=== PATIENT | female | born 1975 | race African-American/Black ===

== ENCOUNTER 2021-06-04 13:06 | Emergency (ER) | payer OTHER ==
--- OUTSIDE RECORDS SUMMARY | 2021-06-04 13:09 | XMS REPORT | Continuity of Care Document ---
:1975 Author Organization [facility] t Address [address] [place] [address] Care Team Providers Name Role Phone Unavailable Unavailable Unavailable Problems This patient has no known problems. Allergies, Adverse Reactions, Alerts This patient has no known allergies or adverse reactions. Medications This patient has no known medications. Procedures This patient has no known procedures. Encounters Start End Encounter Admission Attending Care Care Encounter Source Date/Time Date/Time Type Type Clinicians Facility Department ID 2020-12-16 2020-12-[address] [facility] [id number] [facility] 2020-11-27 2020-11-[address] [facility] [id number] [facility] 2020-11-26 2020-11-[address] [facility] [id number] [facility] Results This patient has no known results.
[2021-06-04] MEDS ORDERED: Ringers Lactate 1,000 ML IV ONE (16:07)
[2021-06-04 16:27] LABS: Absolute Lymphocytes (CBC) 0.9 K/uL (0.7-4.9); Basophils % 0.3 % (0-1.3); Hematocrit 34.8 % (36.0-45.0); Lymphocytes % 25.1 % (15.3-44.8); MPV 8.7 fL (7.6-11.3); Protime INR 1.04
--- NOTE | 2021-06-04 16:38 | RAD REPORT ---
EXAM DESCRIPTION: RAD - Chest Single View - 06/04/2021 4:28 pm CLINICAL HISTORY: syncope Chest pain. COMPARISON: No comparisons FINDINGS: Portable technique limits examination quality. The lungs are grossly clear. The heart is normal in size. No displaced fractures. IMPRESSION: No acute intrathoracic process suspected.
[2021-06-04 16:42] LABS: ALT/SGPT 17 U/L (12-78); AST/SGOT 14 U/L (15-37); Albumin 3.7 g/dL (3.4-5.0); Alkaline Phosphatase 98 U/L (45-117); BUN Blood Urea Nitrogen 10 mg/dL (7-18); Bicarbonate 25 mmol/L (21-32); Bilirubin Direct 0.1 mg/dL (0-0.2); Bilirubin Total 0.2 mg/dL (0.2-1.0); Glucose Level 90 mg/dL (74-106); NT PRO-BNP 16 pg/mL (<125); Potassium 3.9 mmol/L (3.5-5.1); Protein, Total 7.6 g/dL (6.4-8.2); Sodium Level 139 mmol/L (136-145); Troponin (Emerg Dept Use Only) < 0.02 ng/mL (0.0-0.045)
--- NOTE | 2021-06-04 17:23 | ER ---
Nurse's Notes [facility] Name: Griselda Montanez Age: 46 yrs Sex: Female : 1975 Arrival Date: 06/04/2021 Time: 13:07 Bed 11 Private MD: Diagnosis: Syncope Presentation: 06/04 13:07 Chief complaint: Patient states: sore throat and feeling as if she needed to have a BM. ss Pt had a syncopal episode on the way to restroom. Coronavirus screen: Client denies travel out of the [place] in the last 14 days. Ebola Screen: Patient denies exposure to infectious person. Patient denies travel to an Ebola-affected area in the 21 days before illness onset. Initial Sepsis Screen: Does the patient meet any 2 criteria? No. Patient's initial sepsis screen is negative. Does the patient have a suspected source of infection? No. Patient's initial sepsis screen is negative. Risk Assessment: Do you want to hurt yourself or someone else? Patient reports no desire to harm self or others. Onset of symptoms was June 04, 2021. 13:07 Method Of Arrival: EMS: [facility] 13:07 Acuity: GABRIELLA 3 ss Triage Assessment: 15:49 General: Appears in no apparent distress. Behavior is calm, cooperative, appropriate jh5 for age. Pain: Denies pain. Neuro: No deficits noted. Reports a syncopal episode. Historical: - Allergies: 13:10 No Known Allergies; ss - Home Meds: 13:10 Hydrochlorothiazide Oral [Active]; ss - PMHx: 13:10 Hypertensive disorder; ss - PSHx: 13:10 None; ss - Immunization history:: Client reports having NOT received the Covid vaccine. - Social history:: Smoking status: Patient denies any tobacco usage or history of. Screenin:49 Abuse screen: Denies threats or abuse. Denies injuries from another. Nutritional jh5 screening: No deficits noted. Tuberculosis screening: No symptoms or risk factors identified. Fall Risk None identified. Assessment: 16:05 Neuro: Level of Consciousness is awake, alert, obeys commands, Oriented to person, jh5 place, time, situation, Appropriate for age. Cardiovascular: Rhythm is regular. 17:36 Reassessment: Patient appears in no apparent distress at this time. Patient and/or ss family updated on plan of care and expected duration. Pain level reassessed. Patient is alert, oriented x 3, equal unlabored respirations, skin warm/dry/pink. Patient denies pain at this time. Patient states feeling better. Patient states symptoms have improved. Vital Signs: 13:07 BP 116 / 87; Pulse 71; Resp 16; Temp 97.8(O); Pulse Ox 100% on R/A; Weight 92.08 kg; Height 5 ft. 9 in. (175.26 cm); Pain 5/10; 17:14 BP 136 / 89 LA Sitting; Pulse 68; Resp 16; Pulse Ox 100% on R/A; dh3 17:16 BP 135 / 95 LA Standing; Pulse 85; Resp 16; Pulse Ox 100% on R/A; dh3 13:07 Body Mass Index 29.98 (92.08 kg, 175.26 cm) ED Course: 13:07 Patient arrived in ED. 13:09 Triage completed. 13:10 Arm band placed on right wrist. 15:48 Hallie Zhou, JAMA is Primary Nurse. [facility] 15:49 Roland Palma PA is PHCP. [facility] 15:49 Fozia Platt MD is Attending Physician. [facility] 15:50 Patient has correct armband on for positive identification. Bed in low position. Call [facility] light in reach. Side rails up X 1. 16:04 No provider procedures requiring assistance completed. [facility] 16:28 XRAY Chest (1 view) In Process Unspecified. EDWI 17:36 IV discontinued, intact, bleeding controlled, No redness/swelling at site. Pressure ss dressing applied. Administered Medications: 16:15 Drug: Ringers - Lactated Ringers Solution 1000 ml Route: IV; Rate: calculated rate; [facility] Site: right antecubital; Outcome: 17:22 Discharge ordered by . isatu 17:36 Discharged to home ambulatory. 17:36 Condition: good 17:36 Discharge instructions given to patient, family, Instructed on discharge instructions, follow up and referral plans. Demonstrated understanding of instructions, follow-up care. 17:37 Patient left the ED. Signatures: Dispatcher [employer] EDWI Nicky York RN RN Roland Palma PA PA [facility] Nedra Murray dh3 Hallie Zhou, RN RN jh5
--- NOTE | 2021-06-04 17:23 | EDPHYS ---
Physician Documentation [facility] Name: Griselda Montanez Age: 46 yrs Sex: Female : 1975 Arrival Date: 06/04/2021 Time: 13:07 Bed 11 Private MD: ED Physician Fozia Platt HPI: 06/04 16:32 This 46 yrs old Black Female presents to ER via EMS with complaints of Syncope, Sore jr8 Throat. 16:32 The patient has experienced syncope. Onset: The symptoms/episode began/occurred jr8 acutely, today. Current symptoms: Currently, the patient is not experiencing any symptoms, the patient feels back to baseline, no decreased level of consciousness, no confusion, no dysphasia, no headache, no paralysis, no visual changes. The patient has not experienced similar symptoms in the past. The patient has not recently seen a physician. Patient stated that she was standing cooking food. Started to feel very warm and nauseated. Went to bathroom but could not vomit or have bowel movement. Stated that she laid on floor for a while and started to feel better. Got back on the toilet to use bathroom and then became diaphoretic and passed out. Mother found her at that time and called 911. Historical: - Allergies: 13:10 No Known Allergies; ss - Home Meds: 13:10 Hydrochlorothiazide Oral [Active]; ss - PMHx: 13:10 Hypertensive disorder; ss - PSHx: 13:10 None; ss - Immunization history:: Client reports having NOT received the Covid vaccine. - Social history:: Smoking status: Patient denies any tobacco usage or history of. ROS: 16:32 Eyes: Negative for injury, pain, redness, and discharge, ENT: Negative for injury, jr8 pain, and discharge, Neck: Negative for injury, pain, and swelling, Cardiovascular: Negative for chest pain, palpitations, and edema, Respiratory: Negative for shortness of breath, cough, wheezing, and pleuritic chest pain, Back: Negative for injury and pain, MS/Extremity: Negative for injury and deformity, Skin: Negative for injury, rash, and discoloration. 16:32 Abdomen/GI: Positive for nausea. 16:32 Neuro: Positive for syncope. Exam: 16:32 Constitutional: This is a well developed, well nourished patient who is awake, alert, jr8 and in no acute distress. Eyes: Pupils equal round and reactive to light, extra-ocular motions intact. Lids and lashes normal. Conjunctiva and sclera are non-icteric and not injected. Cornea within normal limits. Periorbital areas with no swelling, redness, or edema. ENT: Nares patent. No nasal discharge, no septal abnormalities noted. Tympanic membranes are normal and external auditory canals are clear. Oropharynx with no redness, swelling, or masses, exudates, or evidence of obstruction, uvula midline. Mucous membranes moist. Neck: Trachea midline, no thyromegaly or masses palpated, and no cervical lymphadenopathy. Supple, full range of motion without nuchal rigidity, or vertebral point tenderness. No Meningismus. Cardiovascular: Regular rate and rhythm with a normal S1 and S2. No gallops, murmurs, or rubs. Normal PMI, no JVD. No pulse deficits. Respiratory: Lungs have equal breath sounds bilaterally, clear to auscultation and percussion. No rales, rhonchi or wheezes noted. No increased work of breathing, no retractions or nasal flaring. Abdomen/GI: Soft, non-tender, with normal bowel sounds. No distension or tympany. No guarding or rebound. No evidence of tenderness throughout. Back: No spinal tenderness. No costovertebral tenderness. Full range of motion. Skin: Warm, dry with normal turgor. Normal color with no rashes, no lesions, and no evidence of cellulitis. MS/ Extremity: Pulses equal, no cyanosis. Neurovascular intact. Full, normal range of motion. Neuro: Awake and alert, GCS 15, oriented to person, place, time, and situation. Cranial nerves II-XII grossly intact. Motor strength 5/5 in all extremities. Sensory grossly intact. Cerebellar exam normal. Normal gait. Vital Signs: 13:07 BP 116 / 87; Pulse 71; Resp 16; Temp 97.8(O); Pulse Ox 100% on R/A; Weight 92.08 kg; ss Height 5 ft. 9 in. (175.26 cm); Pain 5/10; 17:14 BP 136 / 89 LA Sitting; Pulse 68; Resp 16; Pulse Ox 100% on R/A; dh3 17:16 BP 135 / 95 LA Standing; Pulse 85; Resp 16; Pulse Ox 100% on R/A; dh3 13:07 Body Mass Index 29.98 (92.08 kg, 175.26 cm) ss MDM: 15:49 Patient medically screened. [facility] 17:21 Data reviewed: vital signs, nurses notes, lab test result(s), EKG, radiologic studies, jr8 plain films. Data interpreted: Pulse oximetry: on room air is 100 %. Interpretation: normal. Counseling: I had a detailed discussion with the patient and/or guardian regarding: the historical points, exam findings, and any diagnostic results supporting the discharge/admit diagnosis, lab results, radiology results, the need for outpatient follow up, a family practitioner, to return to the emergency department if symptoms worsen or persist or if there are any questions or concerns that arise at home. Response to treatment: the patient's symptoms have markedly improved after treatment, patient is well hydrated. 06/04 16:05 Order name: Basic Metabolic Panel; Complete Time: 16:48 [facility] 06/04 16:05 Order name: CBC with Diff; Complete Time: 16:32 [facility] 06/04 16:05 Order name: LFT's; Complete Time: 16:48 [facility] 06/04 16:05 Order name: Magnesium; Complete Time: 16:48 [facility] 06/04 16:05 Order name: NT PRO-BNP; Complete Time: 16:48 [facility] 06/04 16:05 Order name: PT-INR; Complete Time: 16:32 [facility] 06/04 16:05 Order name: Troponin (emerg Dept Use Only); Complete Time: 16:48 [facility] 06/04 16:05 Order name: XRAY Chest (1 view); Complete Time: 16:41 06/04 16:05 Order name: EKG; Complete Time: 16:06 [facility] 06/04 16:05 Order name: Cardiac monitoring; Complete Time: 16:15 [facility] 06/04 16:05 Order name: EKG - Nurse/Tech; Complete Time: 16:55 06/04 16:05 Order name: IV Saline Lock; Complete Time: 16:15 [facility] 06/04 16:05 Order name: Labs collected and sent; Complete Time: 16:16 [facility] 06/04 16:05 Order name: O2 Per Protocol; Complete Time: 16:06 [facility] 06/04 16:05 Order name: O2 Sat Monitoring; Complete Time: 16:05 jr8 06/04 16:49 Order name: Orthostatics; Complete Time: 17:19 jr8 Administered Medications: 16:15 Drug: Ringers - Lactated Ringers Solution 1000 ml Route: IV; Rate: calculated rate; jh5 Site: right antecubital; Disposition Summary: 06/04/21 17:22 Discharge Ordered Location: Home jr8 Problem: new jr8 Symptoms: have improved jr8 Condition: Stable jr8 Diagnosis - Syncope jr8 Followup: jr8 - With: Private Physician - When: 5 - 6 days - Reason: Recheck today's complaints, Continuance of care, Re-evaluation by your physician Discharge Instructions: - Discharge Summary Sheet jr8 - Syncope jr8 Forms: - Medication Reconciliation Form jr8 - Thank You Letter jr8 - Antibiotic Education jr8 - Prescription Opioid Use jr8 Addendum: 06/06/2021 18:51 Co-signature as Attending Physician, Fozia Platt MD. m a2 Signatures: Dispatcher [employer] Nicky Wilson RN RN Roland Palma PA PA jr8 Fozia Platt MD MD ma2 Hallie Zhou RN RN jh5
[2021-06-04 17:41] VITALS: TEMP 97.8; O2SAT 100
[2021-06-04 17:43] VITALS: BP 135/95
== END 2021-06-04 17:37 | disposition home or self-care (01) ==
LOC: ER 13:06
DX: R55 Syncope and collapse (principal); R11.0 Nausea; I10 Essential (primary) hypertension
CPT/HCPCS: 93005; 85025; 80048; 36415; 83735; 85610; 80076; 84484; 83880; 71045; 96374; 99283; J7120

== ENCOUNTER 2022-03-05 20:02 | Emergency (ER) | payer OTHER ==
--- OUTSIDE RECORDS SUMMARY | 2022-03-05 20:04 | XMS REPORT | Continuity of Care Document ---
:1975 Author Organization [facility] t Address [address] [place] [address] Care Team Providers Name Role Phone Vidya Mahmood Nubia Attending Clinician Unavailable Problems This patient has no known problems. Allergies, Adverse Reactions, Alerts This patient has no known allergies or adverse reactions. Medications This patient has no known medications. Procedures This patient has no known procedures. Encounters Start End Encounter Admission Attending Care Care Encounter Source Date/Time Date/Time Type Type Clinicians Facility Department ID 2021-07-07 Outpatient Mahmood, Na [facility] [id number] 2 Common 13:36:57 [id number] [facility] 2021-07-07 Outpatient Timoteo Na [facility] ST[facility] [id number] 2 Common 13:36:41 [id number] [facility] 2021-07-07 Outpatient Mahmood, Na [facility] ST[facility] [id number] 2 Common 13:23:03 [id number] [facility] 2021-07-07 Outpatient [facility] ST[facility] [id number] Common 13:21:58 [id number] [facility] 2021-07-07 Outpatient [facility] ST[facility] [id number] Common 13:16:06 [id number] [facility] 2020-12-16 2020-12-16 Outpatient [facility] [id number] Common 00:00:00 00:00:00 [facility] 2020-11-27 2020-11-27 Outpatient [facility] [id number] Common 00:00:00 00:00:00 [facility] 2020-11-26 2020-11-26 Outpatient [facility] [id number] Common 00:00:00 00:00:00 [facility] Results This patient has no known results.
[2022-03-05] MEDS ORDERED: hydroCHLOROthiazide 25 MG TAB ONE (20:45)
[2022-03-05] MEDS ORDERED: TETANUS & DIPHTHERIA TOX,ADULT 0.5 ML VIAL ONE (20:45)
[2022-03-05] MEDS ORDERED: LIDOCAINE 1% MPF 30 ML VIAL ONE (20:46)
--- NOTE | 2022-03-05 21:20 | EDPHYS ---
Physician Documentation [facility] Name: Griselda Montanez Age: 46 yrs Sex: Female : 1975 Arrival Date: 03/05/2022 Time: 20:05 Bed 12 Private MD: ED Physician Keturah Manriquez HPI: 03/05 21:50 This 46 yrs old Black Female presents to ER via Ambulatory with complaints of Dog Bite. kb 21:50 The patient was bitten on the dorsal aspect of proximal phalanx of left thumb and kb dorsum of left hand, by a dog, while trying to stop animals from fighting, at a relative's home. Onset: The symptoms/episode began/occurred just prior to arrival. Animal information: The animal was reported to appear healthy. Animal's vaccinations are up to date. Secondary to the bite the patient reports multiple lacerations, that are superficial, with the longest being 1.5 cm(s), and the total laceration length being 2.5 cm(s). Associated signs and symptoms: Pertinent positives: pain at site, swelling at site. Severity of symptoms: At their worst the symptoms were mild, in the emergency department the symptoms are unchanged. The patient has not experienced similar symptoms in the past. The patient has not recently seen a physician. 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 - Social history:: Smoking status: Patient denies any tobacco usage or history of. ROS: 21:02 Constitutional: Negative for fever, chills, and weight loss. kb 21:02 Skin: Positive for laceration(s), of the dorsal aspect of proximal phalanx of left thumb and dorsum of left hand. 21:02 All other systems are negative. Exam: 21:01 Constitutional: This is a well developed, well nourished patient who is awake, alert, kb and in no acute distress. Head/Face: Normocephalic, atraumatic. ENT: Moist Mucous membranes Respiratory: Respirations even and unlabored. No increased work of breathing. Talking in full sentences MS/ Extremity: Pulses equal, no cyanosis. Neurovascular intact. Full, normal range of motion. Neuro: Awake and alert, GCS 15, oriented to person, place, time, and situation. Moves all extremities. Normal gait. Psych: Awake, alert, with orientation to person, place and time. Behavior, mood, and affect are within normal limits. 21:01 Skin: injury, bite(s), superficial, linear, of the dorsal aspect of proximal phalanx of left thumb and dorsum of left hand. Vital Signs: 20:17 BP 160 / 104; Pulse 89; Resp 16; Temp 98.4; Pulse Ox 100% on R/A; Weight 86.18 kg; hb Height 5 ft. 9 in. (175.26 cm); Pain 6/10; 22:12 BP 148 / 89; Pulse 78; Resp 18; Pulse Ox 99% ; kb3 20:17 Body Mass Index 28.06 (86.18 kg, 175.26 cm) hb Laceration: 21:49 Wound Repair of 0.5cm ( 0.2in ) subcutaneous laceration to dorsum of left hand. Linear kb shaped.. Distal neuro/vascular/tendon intact. Anesthesia: Wound infiltrated with 1 mls of 1% lidocaine. Wound prep: Extensive cleansing with betadine by me, Wound irrigation with saline by me. Skin closed with 1 4-0 Prolene using simple sutures and sterile technique. Patient tolerated well. 21:49 Wound Repair of 1.5cm ( 0.6in ) subcutaneous laceration to dorsal aspect of proximal kb phalanx of left thumb. Linear shaped.. Distal neuro/vascular/tendon intact. Anesthesia: Local anesthetic administered with 2 mls of 1% lidocaine. Wound prep: Extensive cleansing with betadine by me, Wound irrigation with saline by me. Skin closed with 2 4-0 Prolene using simple sutures and sterile technique. Patient tolerated well. MDM: 20:10 Patient medically screened. kb 21:01 Data reviewed: vital signs, nurses notes. Data interpreted: Pulse oximetry: on room air kb is 100 %. Interpretation: normal. Counseling: I had a detailed discussion with the patient and/or guardian regarding: the historical points, exam findings, and any diagnostic results supporting the discharge/admit diagnosis, the need for outpatient follow up, a family practitioner, to return to the emergency department if symptoms worsen or persist or if there are any questions or concerns that arise at home. 03/05 20:10 Order name: Dressing - Wound; Complete Time: 22:10 kb 03/05 20:10 Order name: Gloves, Sterile; Complete Time: 20:44 kb 03/05 20:10 Order name: Prolene, Sutures; Complete Time: 20:43 kb 03/05 20:10 Order name: Setup Suture Tray; Complete Time: 20:43 kb Administered Medications: 20:44 Drug: Tetanus-Diphtheria Toxoid Adult 0.5 ml {Weighter: Pet[employer]. Exp: kd3 10/16/2023. Lot #: [id number]. } Route: IM; Site: left deltoid; 22:10 Follow up: Response: No adverse reaction kb3 20:44 Drug: Hydrochlorothiazide 25 mg Route: PO; kd3 22:10 Follow up: Response: No adverse reaction kb3 21:30 Drug: Lidocaine (1 %) 1 vials {Note: Given by Bharti MULLEN during suture procedure.} kb3 Volume: 5 ml; Route: Infiltration; 22:10 Follow up: Response: No adverse reaction kb3 22:04 Drug: Augmentin (Amoxicillin-Clavulanate) 875 mg Route: PO; kb3 22:10 Follow up: Response: No adverse reaction kb3 Disposition: 03/06 20:56 STAFF ATTESTATION STATEMENT: I was immediately available onsite in the emergency sd2 department for consultation in the care of this patient. I did not see or examine this patient. Keturah Manriquez MD. Disposition Summary: 03/05/22 21:19 Discharge Ordered Location: Home kb Condition: Stable kb Diagnosis - Bitten by dog kb Followup: kb - With: Emergency Department - When: As needed - Reason: Worsening of condition Followup: kb - With: Private Physician - When: 2 - 3 days - Reason: Recheck today's complaints, Continuance of care, Re-evaluation by your physician Discharge Instructions: - Discharge Summary Sheet kb - Animal Bite, Adult, [id number] kb Forms: - Medication Reconciliation Form kb - Thank You Letter kb - Antibiotic Education kb - Prescription Opioid Use kb Prescriptions: - Augmentin 875-125 mg Oral Tablet - take 1 tablet by ORAL route every 12 hours for 10 days; 20 tablet; Refills: 0, kb Product Selection Permitted Signatures: Bharti Astudillo, [facility]-C [facility]-Ckb Leslie Palomino, RN RN hb Sharon Bee, RN RN kd3 Keturah Manriquez MD MD sd2 Heaven Cr, RN RN kb3
--- NOTE | 2022-03-05 21:20 | ER ---
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 Vaccinations up to date per hb laundry folder. Coronavirus screen: At this time, the client does not indicate any symptoms associated with coronavirus-19. Ebola Screen: No symptoms or risks identified at this time. Risk Assessment: Do you want to hurt yourself or someone else? Patient reports no desire to harm self or others. Onset of symptoms was March 05, 2022. 20:17 Method Of Arrival: Ambulatory 20:17 Acuity: GABRIELLA 4 22:12 Initial Sepsis Screen: Does the patient meet any 2 criteria? No. Patient's initial kb3 sepsis screen is negative. Does the patient have a suspected source of infection? No. Patient's initial sepsis screen is negative. Triage Assessment: 21:00 Bite description: bite sustained to dorsum of left hand by a dog, animal information: kb3 vaccination(s) is current. 21:00 General: Appears in no apparent distress. comfortable, Behavior is calm, cooperative. 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 - Social history:: Smoking status: Patient denies any tobacco usage or history of. Screenin:52 Abuse screen: Denies threats or abuse. Denies injuries from another. Nutritional kb3 screening: No deficits noted. Tuberculosis screening: No symptoms or risk factors identified. Fall Risk None identified. Assessment: 20:30 General: Appears in no apparent distress. comfortable, Behavior is calm, cooperative, kb3 Pt reports she was trying to break up a fight between her 2 dogs and was bitten on the left hand by the small dachshund. 3 small uncture wounds noted to the dorsal surface of the left hand, largest measuring 1 cm. Bleeding is controlled. . 20:30 Pain: Complains of pain in dorsum of left hand Pain does not radiate. Pain currently is kb3 5 out of 10 on a pain scale. Quality of pain is described as burning, stinging, Pain began 30 min ago. Derm: Skin is intact, Skin is pink, warm \T\ dry. Wound noted dorsum of left hand. 20:52 General: [place] PD notified, officer en route. kb3 21:10 General: [place] Officer at bedside to take dog bite report. kb3 Vital Signs: 20:17 BP 160 / 104; Pulse 89; Resp 16; Temp 98.4; Pulse Ox 100% on R/A; Weight 86.18 kg; hb Height 5 ft. 9 in. (175.26 cm); Pain 6/10; 22:12 BP 148 / 89; Pulse 78; Resp 18; Pulse Ox 99% ; kb3 20:17 Body Mass Index 28.06 (86.18 kg, 175.26 cm) hb ED Course: 20:05 Patient arrived in ED. ja2 20:05 Bharti Astudillo FNP-C is PHCP. kb 20:05 Keturah Manriquez MD is Attending Physician. kb 20:19 Triage completed. hb 20:19 Arm band placed on. hb 20:41 Heaven Cr, RN is Primary Nurse. kb3 20:52 Patient has correct armband on for positive identification. Bed in low position. Call kb3 light in reach. 20:52 Assist provider with laceration repair Set up tray. Patient did not have IV access kb3 during this emergency room visit. Administered Medications: 20:44 Drug: Tetanus-Diphtheria Toxoid Adult 0.5 ml {Patch Machine Operator: Quippi. Exp: kd3 10/16/2023. Lot #: [id number]. } Route: IM; Site: left deltoid; 22:10 Follow up: Response: No adverse reaction kb3 20:44 Drug: Hydrochlorothiazide 25 mg Route: PO; kd3 22:10 Follow up: Response: No adverse reaction kb3 21:30 Drug: Lidocaine (1 %) 1 vials {Note: Given by Bharti MULLEN during suture procedure.} kb3 Volume: 5 ml; Route: Infiltration; 22:10 Follow up: Response: No adverse reaction kb3 22:04 Drug: Augmentin (Amoxicillin-Clavulanate) 875 mg Route: PO; kb3 22:10 Follow up: Response: No adverse reaction kb3 Medication: 20:52 VIS not applicable for this client. kb3 Outcome: 21:19 Discharge ordered by . kb 22:11 Discharged to home ambulatory. kb3 22:11 Condition: stable 22:11 Discharge instructions given to patient, Instructed on discharge instructions, follow up and referral plans. medication usage, Demonstrated understanding of instructions, follow-up care, medications, Prescriptions given X 1. 22:13 Patient left the ED. 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 hb hb
[2022-03-05] MEDS ORDERED: AMOX/K CLAV 875 MG TAB ONE (22:05)
[2022-03-07 08:49] VITALS: BP 160/104; TEMP 98.4; O2SAT 100
== END 2022-03-05 22:13 | disposition home or self-care (01) ==
LOC: ER 20:02
PROC: 0JQK0ZZ Repair Left Hand Subcutaneous Tissue and Fascia, Open Approach (ICD-10-PCS; principal; 2022-03-05)
DX: S61.012A Laceration without foreign body of left thumb without damage to nail, initial encounter (principal); W54.0XXA Bitten by dog, initial encounter; Z23 Encounter for immunization; I10 Essential (primary) hypertension
CPT/HCPCS: 90471; 90714; 99283

== ENCOUNTER 2022-03-14 18:10 | Emergency (ER) | payer OTHER ==
--- OUTSIDE RECORDS SUMMARY | 2022-03-14 18:13 | XMS REPORT | Continuity of Care Document ---
:1975 Author Organization [facility] t Address [address] [place] [address] Care Team Providers Name Role Phone Vidya Mahmood Attending Clinician Unavailable Problems This patient has no known problems. Allergies, Adverse Reactions, Alerts This patient has no known allergies or adverse reactions. Medications This patient has no known medications. Procedures This patient has no known procedures. Encounters Start End Encounter Admission Attending Care Care Encounter Source Date/Time Date/Time Type Type Clinicians Facility Department ID 2022-03-14 Outpatient Mahmood, Na [facility]LMLC ST[facility] [id number] 2 Common 14:27:01 [id number] [facility] 2021-07-07 Outpatient Mahmood, Na [facility]LMLC STL[facility] [id number] 2 Common 13:36:57 [id number] [facility] 2021-07-07 Outpatient Mahmood, Na STLMLC STL[facility] [id number] 2 Common 13:36:41 [id number] [facility] 2021-07-07 Outpatient Mahmood, Na STLMLC STL[facility] [id number] 2 Common 13:23:03 [id number] [facility] 2021-07-07 Outpatient STLMLC STL[facility] [id number] Common 13:21:58 [id number] [facility] 2021-07-07 Outpatient [facility]LMLC STL[facility] [id number] Common 13:16:06 [id number] [facility] 2020-12-16 2020-12-16 Outpatient [facility]LMLC STL[facility] [id number] Common 00:00:00 00:00:00 [facility] 2020-11-27 2020-11-27 Outpatient STLMLC STLC [id number] Common 00:00:00 00:00:00 [facility] 2020-11-26 2020-11-26 Outpatient STLC STLC [id number] Common 00:00:00 00:00:00 [facility] Results This patient has no known results.
[2022-03-14] MEDS ORDERED: LIDOCAINE VISCOUS 2% SOLN 15 ML UDC ONE (18:55)
--- NOTE | 2022-03-14 19:50 | ER ---
Nurse's Notes [facility] Name: Griselda Montanez Age: 47 yrs Sex: Female : 1975 Arrival Date: 03/14/2022 Time: 18:12 Bed 9 Private MD: Diagnosis: Encounter for removal of sutures;Hypertensive heart disease without heart failure Presentation: 03/14 18:35 Chief complaint: Patient states: she is here today to have sutures removed that she had ap3 placed at this facility approx one week ago. Coronavirus screen: At this time, the client does not indicate any symptoms associated with coronavirus-19. Ebola Screen: No symptoms or risks identified at this time. Initial Sepsis Screen: Does the patient meet any 2 criteria? No. Patient's initial sepsis screen is negative. Does the patient have a suspected source of infection? No. Patient's initial sepsis screen is negative. Risk Assessment: Do you want to hurt yourself or someone else? Patient reports no desire to harm self or others. Onset of symptoms was March 07, 2022. 18:35 Method Of Arrival: Ambulatory ap3 18:35 Acuity: GABRIELLA 4 ap3 Triage Assessment: 18:36 General: Appears in no apparent distress. Behavior is calm, cooperative. Pain: Denies ap3 pain. Neuro: Level of Consciousness is awake, alert, obeys commands, Oriented to person, place, time, situation. Cardiovascular: Patient's skin is warm and dry. Respiratory: Airway is patent Respiratory effort is even, unlabored, Respiratory pattern is regular, symmetrical. 18:37 Derm: Wound noted left hand Other: sutures present. 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 - Social history:: Smoking status: Patient denies any tobacco usage or history of. Screenin:37 Abuse screen: Denies threats or abuse. Nutritional screening: No deficits noted. ap3 Tuberculosis screening: No symptoms or risk factors identified. Fall Risk None identified. Assessment: 19:45 General: Appears in no apparent distress. comfortable, Behavior is calm, cooperative. kl Pain: Denies pain. Derm: sutures to right hand. Vital Signs: 18:35 BP 160 / 113; Pulse 83; Resp 17; Pulse Ox 100% ; Weight 81.65 kg; Height 5 ft. 9 in. ap3 (175.26 cm); 20:12 BP 158 / 96; Pulse 82; Resp 18; Pulse Ox 99% on R/A; Pain 0/10; kl 18:35 Body Mass Index 26.58 (81.65 kg, 175.26 cm) ap3 ED Course: 18:12 Patient arrived in ED. rg4 18:16 London Louise PA is PHCP. cp 18:16 Daniel Morales MD is Attending Physician. cp 18:36 Triage completed. ap3 18:37 Arm band placed on left wrist. ap3 18:57 Yenny Khoury, JAMA is Primary Nurse. ap3 19:27 Primary Nurse role handed off by Yenny Khoury, JAMA mw2 20:11 No provider procedures requiring assistance completed. Patient did not have IV access kl during this emergency room visit. 20:12 Patient has correct armband on for positive identification. kl Administered Medications: 18:57 Drug: Viscous Lidocaine Liquid (4 %) 5 ml Route: Mucous Membrane; ap3 Medication: 18:37 VIS not applicable for this client. ap3 Outcome: 19:49 Discharge ordered by . cp 20:12 Discharged to home ambulatory. kl 20:12 Condition: stable 20:12 Discharge instructions given to patient, Instructed on discharge instructions, follow up and referral plans. wound care, Demonstrated understanding of instructions, follow-up care, wound care. 20:12 Patient left the ED. kl Signatures: Prudence Gibbons RN London Loving PA PA cp Garcia, Rubi rg4 Yenny Khoury RN RN ap3 Norris Conroy mw2
--- NOTE | 2022-03-14 19:50 | EDPHYS ---
Physician Documentation [facility] Name: Griselda Montanez Age: 47 yrs Sex: Female : 1975 Arrival Date: 03/14/2022 Time: 18:12 Bed 9 Private MD: ED Physician Daniel Morales HPI: 03/14 19:00 This 47 yrs old Black Female presents to ER via Ambulatory with complaints of Suture cp Removal. 19:00 The patient has sutures on the dorsal side of right hand. Previous treatment: The cp patient was initially treated 1 week ago, the care was rendered at [facility], Treatment type: The patient's original treatment included sutures. Sutures/jamari progress: The patient has no c/o's. The wound is well-healing with no redness, swelling, discharge, or dehiscence reported. 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 - Social history:: Smoking status: Patient denies any tobacco usage or history of. ROS: 19:05 Constitutional: Negative for body aches, chills, fever, poor PO intake. cp 19:05 Cardiovascular: Negative for chest pain. cp 19:05 Respiratory: Negative for cough, shortness of breath, wheezing. 19:05 Abdomen/GI: Negative for abdominal pain, nausea, vomiting, and diarrhea. 19:05 Skin: Positive for of the dorsal side of right hand, sutures. 19:05 All other systems are negative. Exam: 19:05 Head/Face: Normocephalic, atraumatic. cp 19:05 Constitutional: The patient appears in no acute distress, alert, awake, comfortable, non-toxic, well developed, well nourished. 19:05 Cardiovascular: Rate: normal. 19:05 Respiratory: the patient does not display signs of respiratory distress, Respirations: normal, no use of accessory muscles, no retractions, labored breathing, is not present. 19:05 Skin: cellulitis, is not appreciated, Wound recheck: Suture laceration closure: the wound is healing well, the edges are well approximated, no drainage, no erythema, no swelling, mild dehiscence, placed dorsal side of right hand. Vital Signs: 18:35 BP 160 / 113; Pulse 83; Resp 17; Pulse Ox 100% ; Weight 81.65 kg; Height 5 ft. 9 in. ap3 (175.26 cm); 20:12 BP 158 / 96; Pulse 82; Resp 18; Pulse Ox 99% on R/A; Pain 0/10; kl 18:35 Body Mass Index 26.58 (81.65 kg, 175.26 cm) ap3 Procedures: 19:45 Suture/Staple removal: Removed 3 sutures, from right hand, site appears well healed, cp dressed with steri strips. Patient tolerated well. MDM: 18:48 Patient medically screened. cp 19:49 Data reviewed: vital signs, nurses notes, and as a result, I will discharge patient. cp Administered Medications: 18:57 Drug: Viscous Lidocaine Liquid (4 %) 5 ml Route: Mucous Membrane; ap3 Disposition: 03/15 07:27 I agree with the assessment and plan of care. Attestation: The patient's history, exam [id number] findings, diagnostics, and a summary of any interventions or procedures was reviewed in detail with London BARGER. Disposition Summary: 03/14/22 19:49 Discharge Ordered Location: Home cp Problem: new cp Symptoms: have improved cp Condition: Stable cp Diagnosis - Encounter for removal of sutures cp - Hypertensive heart disease without heart failure cp Followup: cp - With: Private Physician - When: 1 - 2 days - Reason: blood pressure Discharge Instructions: - Discharge Summary Sheet cp - Hypertension, Adult cp - Suture Removal, Care After cp - Form - Blood Pressure Record Sheet cp - How to Take Your Blood Pressure cp Forms: - Medication Reconciliation Form cp - Thank You Letter cp - Antibiotic Education cp - Prescription Opioid Use cp Signatures: London Louise PA PA cp Yenny Khoury RN RN ap3 Daniel Morales MD MD [id number]
[2022-03-14 20:20] VITALS: BP 158/96; O2SAT 99
== END 2022-03-14 20:12 | disposition home or self-care (01) ==
LOC: ER 18:10
DX: Z48.02 Encounter for removal of sutures (principal); I11.9 Hypertensive heart disease without heart failure
CPT/HCPCS: 99283